=== PATIENT | male | born 1970 | race Caucasian/White ===

== ENCOUNTER 2017-12-21 14:12 | Emergency (ER) | payer OTHER ==
[~2017-12-21] VITALS: Ht 193 cm; Wt 111.1 kg
[~2017-12-21 14:12] MED LIST: AMBEREN; ASPIRIN325 PO; DOLOPHINE HCL5 MG PO; FELDENE20 MG PO; FLEXERIL PO; HYDROCODON-ACE1 EAC7 PO; IBUPROFEN 200200 M1 PO; KEFLEX500 MG PO; LIORESAL 10 MG10 MG PO; LISINOPRIL20 MG PO; MOBIC15 MG PO; MS CONTIN15 MG PO; NAPROSYN500 MG PO; NORCO 10-325 T1 EACH PO; NORCO 5-325 TA1 EACH PO; NORCO 7.5-3251 EACH PO; PERCOCET 5-3251 EACH PO; PROZAC40 MG PO; TIZANIDINE HCL 22 M1 PO; TYLENOL325 MG PO; ULTRAM 50MG TAB50 MG PO; ZANAFLEX2 M2 PO
[2017-12-21] MEDS ORDERED: ACETAMINOPHEN-1 EAC1 PO (14:21)
[2017-12-21] MEDS ORDERED: NORCO 5-325 TA1 EACH PO (14:59)
[2017-12-21] MEDS ORDERED: NABUMETONE 750750 M1 PO (15:00)
[2017-12-21 15:12] VITALS: BP 155/86
== END 2017-12-21 15:14 | disposition home or self-care (01) ==
LOC: M.ERS 14:12
DX: K08.89 Other specified disorders of teeth and supporting structures (principal); Z88.6 Allergy status to analgesic agent